=== PATIENT | female | born 1970 | race Caucasian/White ===

== ENCOUNTER 2017-07-20 14:40 | Emergency (ER) | payer BC ==
[2017-07-20 14:49] VITALS: O2SAT 96
--- NOTE | 2017-07-20 14:59 | ERPHSYRPT ---
- History of Present Illness Time Seen by Provider: 07/20/17 14:56 Source: patient Exam Limitations: no limitations Patient Subjective Stated Complaint: pt reports falling jessica a week ago-states that her right ribs hurt-pain increasing et increases with deep breathing Triage Nursing Assessment: pt pink warm et [id number] in complete senteces with ease-resp nonlabored-no retractions noted Physician History: patient reports falling jessica a week ago-states that her right ribs hurt-pain increasing, increases with deep breathing Occurred: last week Reason for Fall: tripped Injuries/Pain Location: chest Loss of Consciousness: no loss of consciousness Quality: tightness Severity of Pain-Max: moderate Severity of Pain-Current: moderate Modifying Factors: Improves With: nothing Associated Symptoms (Fall): chest pain, other (pain with deep breathing) Allergies/Adverse Reactions: No Known Drug Allergies Allergy (Unverified 07/20/17 14:48) Home Medications: Lisinopril 10 mg [Zestril 10 MG] 10 mg PO DAILY 07/20/17 [History] Hx Tetanus, Diphtheria Vaccination/Date Given: No Hx Influenza Vaccination/Date Given: No Hx Pneumococcal Vaccination/Date Given: No Immunizations Up to Date: Yes - Review of Systems Constitutional: No Symptoms Eyes: No Symptoms Ears, Nose, & Throat: No Symptoms Respiratory: Other (pain with deep breathing) Cardiac: No Symptoms Abdominal/Gastrointestinal: No Symptoms Genitourinary Symptoms: No Symptoms Musculoskeletal: No Symptoms Skin: No Symptoms Neurological: No Symptoms Psychological: No Symptoms - Past Medical History Pertinent Past Medical History: Yes Endocrine Medical History: Diabetes Type II - Past Surgical History Past Surgical History: Yes Gastrointestinal: Appendectomy, Cholecystectomy Genitourinary: Kidney Surgery Musculoskeletal: Orthopedic Surgery Female Surgical History: Hysterectomy, Section Other Surgical History: gastric bypass - Social History Smoking Status: Never smoker Drug Use: none Patient Lives Alone: No - Nursing Vital Signs Nursing Vital Signs: Initial Vital Signs Temperature 98.2 F 07/20/17 14:45 Pulse Rate 97 H 07/20/17 14:45 Respiratory Rate 20 07/20/17 14:45 Blood Pressure 174/89 07/20/17 14:45 O2 Sat by Pulse Oximetry 96 07/20/17 14:45 Pain Scale Pain Intensity 7 - [place] Coma Score Best Eye Response (Ish): (4) open spontaneously Best Verbal Response (Ish): (5) oriented Best Motor Response (Ish): (6) obeys commands Ish Total: 15 - Physical Exam General Appearance: mild distress, alert Head Injury: no evidence of injury Eye Exam: PERRL/EOMI ENT Exam: airway nml Neck Exam: normal inspection, No tenderness Respiratory/Chest Exam: normal breath sounds, rib tenderness (right lower ribs) , No chest tenderness, No respiratory distress Cardiovascular Exam: normal heart sounds, regular rate/rhythm Gastrointestinal Exam: soft, No tenderness, No distention, No guarding, No ecchymosis Back Exam: normal inspection, No vertebral tenderness Extremity Exam: normal inspection, normal range of motion, pelvis stable, No deformities Neurologic Exam: alert, oriented x 3, cooperative, sensation nml, No motor deficits Skin Exam: normal color, warm, dry SpO2: 96 Oxygen Delivery: Room Air - Course Nursing assessment & vital signs reviewed: Yes - Radiology Exams Chest X-ray Interpretation: Reviewed by me Ribs X-ray Interpretation: Reviewed by me (nondisplaced 7th rib anterior fracture) Ordered Tests: Active Orders 24 hr Category Date Time Status CHEST 2 VIEWS (PA AND LAT) Stat Exams 07/20/17 14:55 Taken RIBS UNILATERAL Stat Exams 07/20/17 14:55 Taken - Progress Progress: unchanged, pain not gone completely Counseled pt/family regarding: diagnosis, need for follow-up, rad results - Departure Time of Disposition: 15:23 Departure Disposition: Home Clinical Impression: Closed rib fracture Qualifiers: Encounter type: initial encounter Rib fracture type: single rib Laterality: right Qualified Code(s): S22.31XA - Fracture of one rib, right side, initial encounter for closed fracture Condition: Stable Critical Care Time: No Referrals: CALLI MARTINEZ NP [Primary Care Provider] - Instructions: Rib Contusion, Rib Fracture Additional Instructions: use sloanpas patch on area of pain twice a day, use ibuprofen 800 mg po bid prn for pain. follow up with your primary care physician. use deep breathing exercise to prevent pneumonia Prescriptions: Ibuprofen 800 mg PO BID #20 tablet
[2017-07-20 15:36] VITALS: BP 136/64; PULSE 90
--- NOTE | 2017-07-20 21:14 | XRAY ---
Indication: Pain following fall 2 weeks ago. Comparison: None 2 views of the right ribs demonstrates old lateral 3rd and 5th-7th rib fractures. No other bony, articular, or soft tissue abnormalities.
--- NOTE | 2017-07-20 21:16 | XRAY ---
Indication: Right rib pain following fall 2 weeks ago. Comparison: None PA/lateral chest demonstrates normal heart and lungs. Bony thorax intact with mild osteopenia, mild degenerative changes, and old right rib fractures.
== END 2017-07-20 15:36 | disposition home or self-care (01) ==
LOC: ED 14:40
DX: S22.31XA Fracture of one rib, right side, initial encounter for closed fracture (principal); W19.XXXA Unspecified fall, initial encounter
CPT/HCPCS: 71020; 71100